=== PATIENT | female | born 1960 | race Caucasian/White ===

== ENCOUNTER → 2022-03-27 | Outpatient (CLI) | payer OTHER ==
[2022-03-27 18:03] LABS: BASO % 0.2 % (0.0-1.0); HEMATOCRIT 28.6 % (36.0-47.0); HEMOGLOBIN 9.6 g/dl (12.0-15.5); LYMPH # 1.1 10^3/uL (1.5-5.0); LYMPH % 16.5 % (24.0-44.0); MEAN CORPUSCULAR HEMOGLOBIN 31.7 pg (27.0-33.0); MEAN CORPUSCULAR HGB CONC 33.6 g/dl (32.0-36.5); MEAN CORPUSCULAR VOLUME 94.4 fl (80.0-96.0); MONO # 0.5 10^3/uL (0.0-0.8); MONO % 7.5 % (2.0-8.0); NEUTROPHILS # 4.9 10^3/uL (1.5-8.5); NEUTROPHILS % 74.1 % (36.0-66.0); PLATELET COUNT, AUTOMATED 210 10^3/uL (150-450); RED BLOOD COUNT 3.03 10^6/uL (4.00-5.40); WHITE BLOOD COUNT 6.6 10^3/uL (4.0-10.0)
[2022-03-27 18:28] LABS: ALBUMIN 3.7 GM/DL (3.2-5.2); BILIRUBIN,TOTAL 0.1 MG/DL (0.2-1.0); CALCIUM LEVEL 8.6 MG/DL (8.8-10.2); CREATININE FOR GFR 2.24 MG/DL (0.55-1.30); GLOMERULAR FILTRATION RATE 23.7 (>45); PERCENT SATURATION 72.2 % (13.2-45.0); POTASSIUM SERUM 4.3 MEQ/L (3.5-5.1); TOTAL PROTEIN 6.8 GM/DL (6.4-8.2)
[2022-03-27 18:56] LABS: TOTAL 25(OH) VITAMIN D 31.8 NG/ML (30.0-100.0)
== END ==
LOC: M LAB 16:45
PROVIDERS: ATTEND Nurse Practitioner Women's Health
DX: D64.9 Anemia, unspecified (principal); K62.5 Hemorrhage of anus and rectum; E55.9 Vitamin D deficiency, unspecified; Z72.0 Tobacco use

== ENCOUNTER → 2022-04-25 | Outpatient (CLI) | payer OTHER ==
[2022-04-25 13:07] LABS: BASO % 0.1 % (0.0-1.0); HEMATOCRIT 37.1 % (36.0-47.0); HEMOGLOBIN 11.8 g/dl (12.0-15.5); LYMPH # 1.4 10^3/uL (1.5-5.0); MEAN CORPUSCULAR HEMOGLOBIN 29.7 pg (27.0-33.0); MEAN CORPUSCULAR HGB CONC 31.8 g/dl (32.0-36.5); MEAN CORPUSCULAR VOLUME 93.5 fl (80.0-96.0); MONO # 0.5 10^3/uL (0.0-0.8); MONO % 5.9 % (2.0-8.0); NEUTROPHILS # 7.2 10^3/uL (1.5-8.5); NEUTROPHILS % 77.8 % (36.0-66.0); PLATELET COUNT, AUTOMATED 277 10^3/uL (150-450); RED BLOOD COUNT 3.97 10^6/uL (4.00-5.40); WHITE BLOOD COUNT 9.2 10^3/uL (4.0-10.0)
[2022-04-25 15:19] LABS: ALBUMIN 3.7 GM/DL (3.2-5.2); BILIRUBIN,TOTAL 0.2 MG/DL (0.2-1.0); CALCIUM LEVEL 8.9 MG/DL (8.8-10.2); CREATININE FOR GFR 2.08 MG/DL (0.55-1.30); GLOMERULAR FILTRATION RATE 25.8 (>45); PERCENT SATURATION 10.8 % (13.2-45.0); POTASSIUM SERUM 4.9 MEQ/L (3.5-5.1); TOTAL 25(OH) VITAMIN D 34.7 NG/ML (30.0-100.0); TOTAL PROTEIN 7.1 GM/DL (6.4-8.2)
== END ==
LOC: M LAB 12:15
PROVIDERS: ATTEND Nurse Practitioner Women's Health
DX: D64.9 Anemia, unspecified (principal); K62.5 Hemorrhage of anus and rectum; E55.9 Vitamin D deficiency, unspecified; Z72.0 Tobacco use

== ENCOUNTER 2022-05-22 18:49 | Observation (INO) | payer OTHER ==
[~2022-05-22] VITALS: Ht 154.9 cm; Wt 61.3 kg
[2022-05-22 21:15] LABS: BASO % 0.2 % (0.0-1.0); HEMATOCRIT 34.3 % (36.0-47.0); LYMPH # 0.6 10^3/uL (1.5-5.0); LYMPH % 6.5 % (24.0-44.0); MEAN CORPUSCULAR HEMOGLOBIN 30.1 pg (27.0-33.0); MEAN CORPUSCULAR HGB CONC 32.1 g/dl (32.0-36.5); MEAN CORPUSCULAR VOLUME 93.7 fl (80.0-96.0); MONO # 0.3 10^3/uL (0.0-0.8); MONO % 3.5 % (2.0-8.0); NEUTROPHILS # 8.5 10^3/uL (1.5-8.5); NEUTROPHILS % 88.6 % (36.0-66.0); PLATELET COUNT, AUTOMATED 223 10^3/uL (150-450); RED BLOOD COUNT 3.66 10^6/uL (4.00-5.40); WHITE BLOOD COUNT 9.6 10^3/uL (4.0-10.0)
[2022-05-22 21:51] LABS: ALT/SGPT 20 U/L (7.0-40); BILIRUBIN,DIRECT < 0.1 MG/DL (<0.4); BILIRUBIN,TOTAL < 0.2 MG/DL (0.3-1.2); BLOOD UREA NITROGEN 47 MG/DL (9-23); CALCIUM LEVEL 8.9 MG/DL (8.3-10.6); CARBON DIOXIDE LEVEL 25 MMOL/L (20-31); CHLORIDE LEVEL 100 MMOL/L (98-107); CREATININE FOR GFR 1.66 MG/DL (0.55-1.30); ETHYL ALCOHOL (ETHANOL) 0.003 % (0.000-0.010); GLOMERULAR FILTRATION RATE 33.4 (>45); GLUCOSE, FASTING 205 MG/DL (74-106); POTASSIUM SERUM 4.8 MMOL/L (3.5-5.1); SODIUM LEVEL 137 MMOL/L (136-145); THYROID STIMULATING HORMONE 2.483 uIU/ML (0.55-4.78)
[2022-05-22 23:22] LABS: RSV AMPLIFICATION NEGATIVE (NEGATIVE)
[2022-05-22] MEDS ORDERED: FERR1TAB8 PO (23:54)
[2022-05-22] MEDS ORDERED: LANS30CA PO (23:54)
[2022-05-22] MEDS ORDERED: VENL150C43 PO (23:54)
[2022-05-22] MEDS ORDERED: LISI5TAB11 PO (23:54)
[2022-05-22] MEDS ORDERED: C 50TAB PO (23:54)
[2022-05-22] MEDS ORDERED: FLEC50HA PO (23:54)
[2022-05-22] MEDS ORDERED: SYMB16INH INH (23:54)
[2022-05-22] MEDS ORDERED: ASPI-161 PO (23:54)
[2022-05-22] MEDS ORDERED: ADME100I2 SC (23:54)
[2022-05-22] MEDS ORDERED: DILT120C31 PO (23:54)
[2022-05-22] MEDS ORDERED: INSU100I36 SC (23:54)
[2022-05-22] MEDS ORDERED: INCR1INH INH (23:54)
[2022-05-22] MEDS ORDERED: PRAV20TA2 PO (23:54)
[2022-05-22] MEDS ORDERED: HOME MED LIST COMPLETE! XX SCH (23:55)
[2022-05-23] MEDS ORDERED: GLUCAGON INJ 1MG VIAL SC PRN (00:35)
[2022-05-23] MEDS ORDERED: ACETAMINOPHEN TAB 650MG DOSE (2X325MG) PO PRN (00:35)
[2022-05-23] MEDS ORDERED: DEXTROSE 50% 50 ML SYRINGE IV PRN (00:35)
[2022-05-23] MEDS ORDERED: GLUCOSE 4GM CHEW TABLET PO PRN (00:35)
[2022-05-23 01:32] LABS: HEMOGLOBIN A1c 9.2 % (4.0-6.0)
[2022-05-23] MEDS: INSULIN LISPRO (NovoLOG) PER UNIT SC SCH ×5 (07:00→23:37)
[2022-05-23] MEDS: SYMBICORT 160/4.5MCG INHALER 6GM INH SCH ×2 (07:39→20:34)
[2022-05-23] MEDS ORDERED: ALBUTEROL SULFATE 2.5 MG/0.5 ML INH NEB SOLN NEB PRN (07:55)
[2022-05-23 08:26] LABS: BASO % 0.3 % (0.0-1.0); EOS % 0.1 % (0.0-3.0); HEMATOCRIT 32.3 % (36.0-47.0); HEMOGLOBIN 10.4 g/dl (12.0-15.5); LYMPH # 1.3 10^3/uL (1.5-5.0); LYMPH % 19.7 % (24.0-44.0); MEAN CORPUSCULAR HEMOGLOBIN 29.9 pg (27.0-33.0); MEAN CORPUSCULAR HGB CONC 32.2 g/dl (32.0-36.5); MEAN CORPUSCULAR VOLUME 92.8 fl (80.0-96.0); MONO # 0.6 10^3/uL (0.0-0.8); MONO % 8.6 % (2.0-8.0); NEUTROPHILS # 4.7 10^3/uL (1.5-8.5); NEUTROPHILS % 70.3 % (36.0-66.0); PLATELET COUNT, AUTOMATED 236 10^3/uL (150-450); RED BLOOD COUNT 3.48 10^6/uL (4.00-5.40); WHITE BLOOD COUNT 6.7 10^3/uL (4.0-10.0)
[2022-05-23] MEDS: TIOTROPIUM INHALER/CAPSULE (SPIRIVA) INH SCH (08:57)
[2022-05-23] MEDS ORDERED: ASPIRIN 81MG ENTERIC TABLET PO SCH (09:00)
[2022-05-23 09:19] LABS: CALCIUM LEVEL 8.5 MG/DL (8.3-10.6); CREATININE FOR GFR 1.57 MG/DL (0.55-1.30); GLOMERULAR FILTRATION RATE 35.7 (>45); POTASSIUM SERUM 4.1 MMOL/L (3.5-5.1)
[2022-05-23] MEDS: PRAVASTATIN 20 MG TAB PO SCH (12:44)
[2022-05-23] MEDS: VENLAFAXINE **XR** 75MG CAPSULE PO SCH (12:44)
[2022-05-23] MEDS: ENOXAPARIN 40MG/0.4ML SYRINGE (J1650 PER 10MG) SC SCH (12:45)
[2022-05-23] MEDS: lisinopriL 5 MG TAB PO SCH (12:45)
[2022-05-23] MEDS: FLECAINIDE 50MG TABLET PO SCH (14:24)
[2022-05-23] MEDS ORDERED: LEVEMIR (INSULIN DETEMIR) 1 UNITS/0.01ML SC SCH (21:00)
[2022-05-23] MEDS ORDERED: ASCORBIC ACID 500 MG TAB PO SCH (21:00)
[2022-05-23] MEDS ORDERED: FERROUS SULFATE 325MG TAB PO SCH (21:00)
[2022-05-24] MEDS: FLECAINIDE 50MG TABLET PO SCH ×2 (01:08→12:09)
[2022-05-24] MEDS: TIOTROPIUM INHALER/CAPSULE (SPIRIVA) INH SCH (07:41)
[2022-05-24] MEDS: SYMBICORT 160/4.5MCG INHALER 6GM INH SCH (07:41)
[2022-05-24 08:00] VITALS: BP 144/63
[2022-05-24 08:51] LABS: HEMATOCRIT 31.8 % (36.0-47.0); HEMOGLOBIN 10.2 g/dl (12.0-15.5); MEAN CORPUSCULAR HGB CONC 32.1 g/dl (32.0-36.5); MEAN CORPUSCULAR VOLUME 93.5 fl (80.0-96.0); PLATELET COUNT, AUTOMATED 220 10^3/uL (150-450); WHITE BLOOD COUNT 5.4 10^3/uL (4.0-10.0)
[2022-05-24 09:25] LABS: CALCIUM LEVEL 9.3 MG/DL (8.3-10.6); CREATININE FOR GFR 1.67 MG/DL (0.55-1.30); GLOMERULAR FILTRATION RATE 33.2 (>45); POTASSIUM SERUM 4.2 MMOL/L (3.5-5.1)
[2022-05-24] MEDS: INSULIN LISPRO (NovoLOG) PER UNIT SC SCH ×2 (09:59)
[2022-05-24] MEDS: PRAVASTATIN 20 MG TAB PO SCH (10:00)
[2022-05-24] MEDS: VENLAFAXINE **XR** 75MG CAPSULE PO SCH (10:00)
[2022-05-24] MEDS: ENOXAPARIN 40MG/0.4ML SYRINGE (J1650 PER 10MG) SC SCH (10:01)
[2022-05-24 10:08] VITALS: BP 145/64
[2022-05-24] MEDS: lisinopriL 5 MG TAB PO SCH (10:08)
== END 2022-05-24 13:22 | disposition home or self-care (01) ==
LOC: M ED 18:49 → M ED INP 18:50 → ENRESERV 05-24 10:06
PROVIDERS: ADMIT Internal Medicine; ATTEND Internal Medicine
DX: G93.41 Metabolic encephalopathy (principal); E11.649 Type 2 diabetes mellitus with hypoglycemia without coma; T68.XXXA Hypothermia, initial encounter; J44.9 Chronic obstructive pulmonary disease, unspecified; N18.9 Chronic kidney disease, unspecified; I48.91 Unspecified atrial fibrillation; F32.A Depression, unspecified; E78.5 Hyperlipidemia, unspecified; I12.9 Hypertensive chronic kidney disease with stage 1 through stage 4 chronic kidney disease, or unspecified chronic kidney disease; D64.9 Anemia, unspecified; D50.9 Iron deficiency anemia, unspecified; R55 Syncope and collapse
CPT/HCPCS: 36415; 51701; 70450; 71046; 80048; 80076; 81000; 81015; 82077; 83036; 84443; 85025; 85027; 87631; 93005; 93041; 93880; 94640; 94760; 96372; 99285; J1650; J1815

== ENCOUNTER → 2022-07-31 | Outpatient (CLI) | payer OTHER ==
[~2022-07-31] MED LIST: ADME100I2 SC; ASPI-161 PO; C 50TAB PO; DILT120C31 PO; FERR1TAB8 PO; FLEC50HA PO; INCR1INH INH; INSU100I36 SC; LANS30CA PO; LISI5TAB11 PO; PRAV20TA2 PO; SYMB16INH INH; VENL150C43 PO
[2022-07-31 18:11] LABS: HEMOGLOBIN A1c 7.3 % (4.0-6.0)
[2022-07-31 18:22] LABS: ALBUMIN 3.9 G/DL (3.2-5.2); ALKALINE PHOSPHATASE 162 U/L (46-116); ALT/SGPT 14 U/L (7.0-40); AST/SGOT 16 U/L (<34); BILIRUBIN,TOTAL < 0.2 MG/DL (0.3-1.2); BLOOD UREA NITROGEN 46 MG/DL (9-23); CALCIUM LEVEL 8.2 MG/DL (8.3-10.6); CARBON DIOXIDE LEVEL 27 MMOL/L (20-31); CHLORIDE LEVEL 103 MMOL/L (98-107); CREATININE FOR GFR 2.04 MG/DL (0.55-1.30); GLOMERULAR FILTRATION RATE 26.4 (>45); GLUCOSE, FASTING 283 MG/DL (74-106); POTASSIUM SERUM 5.1 MMOL/L (3.5-5.1); SODIUM LEVEL 140 MMOL/L (136-145); TOTAL PROTEIN 6.7 G/DL (5.7-8.2)
== END ==
LOC: M LAB 17:06
DX: E11.8 Type 2 diabetes mellitus with unspecified complications (principal); E61.1 Iron deficiency; E53.8 Deficiency of other specified B group vitamins; E78.5 Hyperlipidemia, unspecified; G64 Other disorders of peripheral nervous system

== ENCOUNTER → 2022-07-31 | Outpatient (CLI) | payer OTHER ==
[2022-07-31 18:00] LABS: HEMATOCRIT 35.2 % (36.0-47.0); MEAN CORPUSCULAR HGB CONC 31.3 g/dl (32.0-36.5); MEAN CORPUSCULAR VOLUME 95.9 fl (80.0-96.0); PLATELET COUNT, AUTOMATED 218 10^3/uL (150-450); RED BLOOD COUNT 3.67 10^6/uL (4.00-5.40)
[2022-07-31 18:17] LABS: TOTAL PROTEIN,RANDOM URINE 54.2 MG/DL (0.0-14.0)
[2022-07-31 18:22] LABS: CALCIUM LEVEL 8.5 MG/DL (8.3-10.6); CREATININE FOR GFR 2.02 MG/DL (0.55-1.30); GLOMERULAR FILTRATION RATE 26.7 (>45); PHOSPHORUS LEVEL 4.7 MG/DL (2.4-5.1); POTASSIUM SERUM 4.8 MMOL/L (3.5-5.1); PTH INTACT 122.3 PG/ML (18.5-88.0)
== END ==
LOC: M LAB 17:09
PROVIDERS: ATTEND Internal Medicine
DX: N18.32 Chronic kidney disease, stage 3b (principal)